=== PATIENT | female | born 1975 | race Caucasian/White ===

== ENCOUNTER 2018-09-25 12:33 | Emergency (ER) | payer MEDICARE, MEDICAID ==
[~2018-09-25] VITALS: Ht 160 cm; Wt 118.6 kg
[2018-09-25] MEDS ORDERED: LISI40TA (13:10)
[2018-09-25] MEDS ORDERED: TRAZ150T90 (13:10)
[2018-09-25] MEDS ORDERED: FERR324T2 (13:10)
[2018-09-25] MEDS ORDERED: LEVO137T2 (13:10)
[2018-09-25] MEDS ORDERED: HYDR12.55 (13:10)
[2018-09-25] MEDS ORDERED: SERT25TA88 (13:10)
[2018-09-25] MEDS ORDERED: VENL37.598 (13:10)
[2018-09-25] MEDS ORDERED: OMEP-218 (13:10)
[2018-09-25 13:41] LABS: BASO # 0.1 10^3/uL (0.0-0.2); BASO % 0.6 % (0.0-1.0); EOS # 0.2 10^3/uL (0.0-0.50); HEMOGLOBIN 15.3 g/dl (12.0-15.5); LYMPH # 2.9 10^3/uL (1.5-4.5); LYMPH % 30.8 % (24.0-44.0); MEAN CORPUSCULAR HEMOGLOBIN 31.2 pg (27.0-33.0); MEAN CORPUSCULAR VOLUME 91.6 fl (80.0-96.0); MONO # 0.7 10^3/uL (0.0-0.8); MONO % 6.9 % (0.0-5.0); NEUTROPHILS # 5.6 10^3/uL (1.8-7.7); NEUTROPHILS % 59.4 % (36.0-66.0); PLATELET COUNT, AUTOMATED 377 10^3/uL (150-450); RED BLOOD COUNT 4.91 10^6/uL (4.00-5.40); WHITE BLOOD COUNT 9.5 10^3/uL (4.0-10.0)
[2018-09-25 13:57] VITALS: BP 188/120
[2018-09-25 14:00] LABS: ALBUMIN 4.2 GM/DL (3.2-5.2); ALT/SGPT 28 U/L (12-78); BILIRUBIN,TOTAL 0.7 MG/DL (0.2-1.0); BLOOD UREA NITROGEN 8 MG/DL (7-18); CALCIUM LEVEL 10.5 MG/DL (8.5-10.1); CARBON DIOXIDE LEVEL 28 MEQ/L (21-32); CHLORIDE LEVEL 104 MEQ/L (98-107); GLOMERULAR FILTRATION RATE > 60.0 (>58); GLUCOSE, FASTING 86 MG/DL (70-100); POTASSIUM SERUM 3.9 MEQ/L (3.5-5.1); SODIUM LEVEL 139 MEQ/L (136-145)
[2018-09-25] MEDS ORDERED: amLODIPine 5 MG TAB PO ONE (14:00)
[2018-09-25 14:36] LABS: CK-MB VALUE MASS < 1.0 NG/ML (<3.6); CPK CREATINE PHOSPHOKINASE 49 U/L (26-192); ETHYL ALCOHOL (ETHANOL) < 0.003 % (0.000-0.010); FREE T4 0.99 NG/DL (0.76-1.46); MAGNESIUM LEVEL 2.1 MG/DL (1.8-2.4); MB/CK RELATIVE INDEX 2.04 (< OR =4); TROPONIN I < 0.02 NG/ML (< 0.10)
[2018-09-25 15:14] LABS: AMPHETAMINES LEVEL URINE NEGATIVE (NEGATIVE); BARBITURATES URINE NEGATIVE (NEGATIVE); BENZODIAZEPINES URINE NEGATIVE (NEGATIVE); CANNABINOIDS URINE NEGATIVE (NEGATIVE); COCAINE METABOLITE URINE NEGATIVE (NEGATIVE); METHADONE URINE NEGATIVE (NEGATIVE); OPIATES URINE NEGATIVE (NEGATIVE); PHENCYCLIDINE URINE NEGATIVE (NEGATIVE)
--- NOTE | 2018-09-25 15:20 | ECGEPIP ---
[facility] - ED Test Date: 2018-09-25 Pat Name: ELPIDIO WADE Department: Room: - Gender: Female Physician Pediatrician: pmo : 1975 Requested By: Kayla Vargas Order Number: [id number] Reading MD: Macey Corley Measurements Intervals [place] Rate: 69 P: 25 AK: 148 QRS: 26 QRSD: 102 T: 17 QT: 360 QTc: 386 Interpretive Statements SINUS RHYTHM NO PRIOR FOR COMPARISON Electronically Signed on 09-25-2018 15:20:30 EDT by Macey Corley
[2018-09-25 16:24] VITALS: BP 134/79
== END 2018-09-25 16:25 | disposition home or self-care (01) ==
LOC: M ED 12:33
DX: I10 Essential (primary) hypertension (principal); T43.215A Adverse effect of selective serotonin and norepinephrine reuptake inhibitors, initial encounter; Y92.9 Unspecified place or not applicable; Y93.9 Activity, unspecified; R42 Dizziness and giddiness; E03.9 Hypothyroidism, unspecified; F32.9 Major depressive disorder, single episode, unspecified; Z79.899 Other long term (current) drug therapy; Z88.6 Allergy status to analgesic agent
CPT/HCPCS: 80053; 80307; 82550; 82553; 83735; 84439; 84443; 84484; 85025; 93005; 99284; G0480

== ENCOUNTER 2019-05-28 16:29 | Emergency (ER) | payer MEDICARE, MEDICAID ==
[~2019-05-28] VITALS: Ht 157.5 cm; Wt 119.2 kg
[~2019-05-28 16:29] MED LIST: FERR324T2 PO; HYDR12.55 PO; LEVO137T2 PO; LISI40TA PO; OMEP-218 PO; SERT25TA21 PO; TRAZ150T90 PO; VENL37.598
[2019-05-28] MEDS ORDERED: DOCU100C16 PO (18:29)
[2019-05-28] MEDS ORDERED: ALL10TAB29 PO (18:29)
[2019-05-28] MEDS ORDERED: DULO1CAP4 PO (18:29)
[2019-05-28] MEDS ORDERED: OYST500T13 PO (18:29)
[2019-05-28] MEDS ORDERED: METOCLOPRAMIDE INJ 10MG/2ML VIAL (J2765) IV ONE (18:45)
[2019-05-28] MEDS ORDERED: NS 1,000 ML IV ONE (18:45)
[2019-05-28] MEDS ORDERED: ACETAMINOPHEN 325 MG TAB PO ONE (18:45)
[2019-05-28 19:44] LABS: BASO # 0.1 10^3/uL (0.0-0.2); BASO % 0.8 % (0.0-1.0); EOS # 0.1 10^3/uL (0.0-0.5); EOS % 1.4 % (0.0-3.0); HEMATOCRIT 41.5 % (36.0-47.0); HEMOGLOBIN 14.4 g/dl (12.0-15.5); LYMPH # 2.5 10^3/uL (1.5-5.0); LYMPH % 27.3 % (24.0-44.0); MEAN CORPUSCULAR HEMOGLOBIN 31.2 pg (27.0-33.0); MEAN CORPUSCULAR HGB CONC 34.7 g/dl (32.0-36.5); MEAN CORPUSCULAR VOLUME 89.8 fl (80.0-96.0); MONO # 0.7 10^3/uL (0.0-0.8); MONO % 7.5 % (0.0-5.0); NEUTROPHILS # 5.6 10^3/uL (1.5-8.5); NEUTROPHILS % 62.6 % (36.0-66.0); PLATELET COUNT, AUTOMATED 353 10^3/uL (150-450); RED BLOOD COUNT 4.62 10^6/uL (4.00-5.40)
[2019-05-28 20:13] LABS: BLOOD UREA NITROGEN 8 MG/DL (7-18); CARBON DIOXIDE LEVEL 28 MEQ/L (21-32); CHLORIDE LEVEL 104 MEQ/L (98-107); CREATININE FOR GFR 0.58 MG/DL (0.55-1.30); GLOMERULAR FILTRATION RATE > 60.0 (>58); GLUCOSE, FASTING 89 MG/DL (70-100); POTASSIUM SERUM 4.4 MEQ/L (3.5-5.1); SODIUM LEVEL 139 MEQ/L (136-145)
[2019-05-28 20:46] VITALS: BP 135/86
== END 2019-05-28 20:50 | disposition home or self-care (01) ==
LOC: M ED 16:29
DX: R51 Headache (principal); I10 Essential (primary) hypertension; E03.9 Hypothyroidism, unspecified; K21.9 Gastro-esophageal reflux disease without esophagitis
CPT/HCPCS: 36415; 80047; 80048; 85025; 96374; 99284; J2765